=== PATIENT | female | born 1995 | race Two or more races ===

== ENCOUNTER 2024-07-20 15:14 | Outpatient (CLI) | payer OTHER | END 2024-07-20 15:16 | disposition home or self-care (01) | LOC: PRENATAL 15:14 | PROVIDERS: ATTEND Obstetrics & Gynecology Maternal & Fetal Medicine | DX: O36.80X0 Pregnancy with inconclusive fetal viability, not applicable or unspecified (principal); Z36.82 Encounter for antenatal screening for nuchal translucency; Z14.8 Genetic carrier of other disease; Z3A.13 13 weeks gestation of pregnancy ==

== ENCOUNTER → 2024-09-12 07:40 | Outpatient (CLI) | payer OTHER | END | disposition home or self-care (01) | LOC: PRENATAL 07:40 | PROVIDERS: ATTEND Obstetrics & Gynecology Maternal & Fetal Medicine | DX: O44.00 Complete placenta previa NOS or without hemorrhage, unspecified trimester (principal); Z3A.20 20 weeks gestation of pregnancy ==

== ENCOUNTER 2024-12-05 09:54 | Outpatient (CLI) | payer OTHER | END 2024-12-05 09:55 | disposition home or self-care (01) | LOC: PRENATAL 09:54 | PROVIDERS: ATTEND Obstetrics & Gynecology Maternal & Fetal Medicine | DX: O26.849 Uterine size-date discrepancy, unspecified trimester (principal); O36.8130 Decreased fetal movements, third trimester, not applicable or unspecified; O99.019 Anemia complicating pregnancy, unspecified trimester; Z3A.32 32 weeks gestation of pregnancy ==

== ENCOUNTER 2025-01-20 14:30 | Inpatient (IN) | payer OTHER ==
[~2025-01-20] VITALS: Ht 157.5 cm; Wt 84.8 kg
[2025-01-31 10:08] VITALS: BP 102/69
[2025-01-31] MEDS ORDERED: MISOPROSTOL 25 MCG/4 ML GEL.W.APPL VAG ONE ×2 (10:15→13:45)
[2025-01-31 11:21] LABS: BASO % 0.4 % (0.1-1.2); EOS # 0.21 (0.04-0.54); EOS % 1.9 % (0.7-7.0); LYMPH # 1.86 (1.18-3.74); LYMPH % 16.8 % (19.3-53.1); MEAN PLATELET VOLUME 10.10 fl (9.4-12.4); MONO # 0.74 (0.24-0.82); MONO % 6.7 % (4.7-12.5); NEUT # 8.16 (1.56-6.13); NEUT % 73.7 % (34.0-71.1); RED CELL DISTRIBUTION WIDTH 14.4 % (11.6-14.4)
[2025-01-31 11:25] LABS: URINE APPEARANCE Cloudy; URINE BILIRRUBIN Negative (NEGATIVE); URINE BLOOD Negative; URINE COLOR Yellow; URINE GLUCOSE Negative (NEGATIVE); URINE KETONE Negative (NEGATIVE); URINE LEUKOCYTE Moderate; URINE NITRATE Negative; URINE PROTEIN 30 (NEGATIVE); URINE UROBILINOGEN 0.2 E.U./dl
[2025-01-31 11:28] LABS: URINE CAST 1.90 uL (0.0-1.40); URINE RBC 6.3 uL (0.0-20.8); URINE WBC 153.5 uL (0.0-23.2)
[2025-01-31 12:10] LABS: INR < 0.93
[2025-01-31 12:19] VITALS: BP 106/69
[2025-01-31 12:23] LABS: URINE EPITHELIAL CELLS > 201.7 uL (0.0-38.8)
[2025-01-31 12:26] LABS: URINE EPITHELIAL CELLS LOADED /HPF
[2025-01-31 15:25] VITALS: BP 106/77
[2025-01-31] MEDS ORDERED: OXYTOCIN 10 UNITS/ML VIAL ONE (19:08)
[2025-01-31] MEDS ORDERED: ERYTHROMYCIN BASE OPHT 1GM EACH TUBE OP ONE (19:09)
[2025-01-31] MEDS ORDERED: CEFAZOLIN SODIUM 1,000 MG VIAL ONE (19:09)
[2025-02-01] MEDS ORDERED: MORPHINE SULFATE 4 MG/ML CARTRIDGE IV SCH (01:00)
[2025-02-01] MEDS ORDERED: KETOROLAC TROMETHAMINE 60 MG VIAL IM ONE (03:00)
[2025-02-01 03:02] VITALS: BP 99/64
[2025-02-01] MEDS ORDERED: OxyCODONE HCL 5 MG TABLET (ROXICODONE) PO SCH (05:00)
[2025-02-01 06:54] LABS: BASO % 0.3 % (0.1-1.2); EOS # 0.07 (0.04-0.54); EOS % 0.5 % (0.7-7.0); LYMPH # 1.54 (1.18-3.74); LYMPH % 10.9 % (19.3-53.1); MEAN PLATELET VOLUME 10.00 fl (9.4-12.4); MONO # 0.70 (0.24-0.82); MONO % 5.0 % (4.7-12.5); NEUT # 11.67 (1.56-6.13); NEUT % 82.9 % (34.0-71.1); RED CELL DISTRIBUTION WIDTH 14.2 % (11.6-14.4)
[2025-02-01] MEDS ORDERED: DOCUSATE SODIUM 100MG CAP PO SCH (08:00)
[2025-02-01 08:58] VITALS: BP 101/68
[2025-02-01] MEDS ORDERED: SIMETHICONE 125 MG CAPSULE PO SCH (09:00)
[2025-02-01] MEDS ORDERED: PNV,CALCIUM 72/IRON/FOLIC ACID 1 TAB TABLET PO SCH (09:00)
[2025-02-01 17:43] VITALS: BP 97/62
[2025-02-02 00:42] VITALS: BP 106/68
[2025-02-02 17:25] VITALS: BP 109/75
[2025-02-03 00:57] VITALS: BP 107/73
[2025-02-03 08:00] VITALS: BP 101/71
== END 2025-02-03 14:02 | disposition home or self-care (01) | DRG 788 ==
LOC: OB/GYN 01-27 14:30 → LDR 01-31 09:33 → OB/GYN 01-31 09:33 → LDR 01-31 10:11 → OB/GYN 02-01 02:49
PROVIDERS: ADMIT Obstetrics & Gynecology; ATTEND Obstetrics & Gynecology
PROC: 4A1HXCZ Monitoring of Products of Conception, Cardiac Rate, External Approach (ICD-10-PCS; 2025-01-31)
PROC: 3E033VJ Introduction of Other Hormone into Peripheral Vein, Percutaneous Approach (ICD-10-PCS; 2025-01-31)
PROC: 3E0P7VZ Introduction of Hormone into Female Reproductive, Via Natural or Artificial Opening (ICD-10-PCS; 2025-01-31)
PROC: 10D00Z1 Extraction of Products of Conception, Low, Open Approach (ICD-10-PCS; principal; 2025-01-31 20:15)
DX: O82 Encounter for cesarean delivery without indication (principal); O62.1 Secondary uterine inertia; Z3A.40 40 weeks gestation of pregnancy; Z37.0 Single live birth